=== PATIENT | female | born 1935 | race Two or more races ===

== ENCOUNTER 2024-01-24 13:12 | Emergency (ER) | payer MEDICARE, MEDICAID ==
[~2024-01-24] VITALS: Ht 167.6 cm; Wt 60.0 kg
[2024-01-24 13:16] VITALS: O2SAT 96
[2024-01-24] MEDS: ACETAMINOPHEN 650MG/20.3ML UDC PO NR (13:30)
[2024-01-24 16:30] LABS: HEMATOCRIT. 34.6 % (36.0-48.0); HEMOGLOBIN. 11.2 g/dL (12.0-16.0); MEAN CORPUSCULAR HEMOGLOBIN 28.1 pg (28.0-32.0); MEAN CORPUSCULAR HGB CONC 32.4 g/dL (31.0-37.0); MEAN CORPUSCULAR VOLUME 86.8 fL (81.0-99.0); MEAN PLATELET VOLUME 8.8 fl (7.4-10.4); PLATELET 156 x1000/uL (130-400); RED BLOOD CELL COUNT 3.99 mill/uL (4.2-5.4); RED CELL DISTRIBUTION WIDTH 17.4 % (11.6-14.6); WHITE BLOOD COUNT 12.9 x1000/uL (4.5-11.0)
[2024-01-24 16:33] LABS: CARBON DIOXIDE 22 mEq/L (21-32); CHLORIDE 105 mEq/L (98-107); SODIUM 135 mEq/L (136-145)
[2024-01-24 16:35] LABS: DIFFERENTIAL COMMENT 1
[2024-01-24 16:37] LABS: INR 1.1
[2024-01-24 16:39] LABS: CREATININE 0.9 mg/dL (0.6-1.0); GLUCOSE 154 mg/dL (70-105); UREA NITROGEN BLOOD 28 mg/dL (9-23)
[2024-01-24 16:40] LABS: ALANINE AMINOTRANSFERASE < 7 IU/L (10-49)
[2024-01-24 16:41] LABS: ALBUMIN 4.1 g/dL (3.2-4.8); ASPARTATE AMINOTRANSFERASE 22 IU/L (<34); BILIRUBIN TOTAL 1.4 mg/dL (0.1-1.0); PROTEIN TOTAL 7.8 g/dL (6.0-8.3)
[2024-01-24 17:39] LABS: ANISOCYTOSIS 1+; PLATELET ESTIMATE NORMAL
[2024-01-24 19:20] VITALS: BP 124/59; PULSE 48; RESP 17; TEMP 37.05852; O2SAT 98
[2024-01-24 19:39] LABS: CLARITY URINE TURBID (CLEAR); COLOR URINE YELLOW (YELLOW); GLUCOSE URINE NEGATIVE (NEGATIVE); KETONES URINE NEGATIVE (NEGATIVE); LEUKOCYTE ESTERASE URINE 3+ (NEGATIVE); NITRITE URINE NEGATIVE (NEGATIVE); OCCULT BLOOD URINE 1+ (NEGATIVE); PH URINE 5.5 (4.5-8.0); PROTEIN URINE 1+ (NEGATIVE); SPECIFIC GRAVITY URINE 1.015 (1.005-1.030)
[2024-01-24] MEDS ORDERED: CEFP200T13 MT (19:54)
[2024-01-24] MEDS ORDERED: TOPUD MT (19:54)
[2024-01-24 20:17] LABS: BACTERIA URINE 3+; SQUAMOUS EPITHELIAL CELL URINE 2+ /lpf (RARE/1+)
[2024-01-24 20:18] LABS: WBC URINE TNTC /hpf (0-2)
== END 2024-01-24 21:30 ==
LOC: ER 13:24
DX: N39.0 Urinary tract infection, site not specified (principal); M54.50 Low back pain, unspecified; I25.10 Atherosclerotic heart disease of native coronary artery without angina pectoris; R00.1 Bradycardia, unspecified
CPT/HCPCS: 36415; 74176; 80053; 81003; 85025; 87186; 93005; 99284